=== PATIENT | female | born 1985 | race Caucasian/White ===

== ENCOUNTER 2017-12-19 13:43 | Inpatient (IN) | payer MEDICARE, MEDICAID ==
[~2017-12-19] VITALS: Ht 152.4 cm; Wt 65.8 kg
--- NOTE | ~2017-12-19 | PN ---
PATIENT:JUNIOR SORTO MEDICAL RECORD: [id number] LOCATION:[facility] ADMISSION DATE: 12/19/17 PROGRESS NOTE DATE OF SERVICE: 12/22/2017 ADDENDUM CHIEF COMPLAINT: Feeling okay. She is running no fever. She is having no chest pain. No shortness of breath. She is still n.p.o. Nothing aggravates. Nothing alleviates. She is asymptomatic. This is a progress note addendum. For the typed portion of the progress note, please see the chart. This would include the past medical and surgical history, current medications, allergies, social history as well as family history. REVIEW OF SYSTEMS: No nausea, no vomiting, no fever, no chills, no shortness of breath. PHYSICAL EXAMINATION: GENERAL: The patient does not appear acutely ill. She does not appear chronically ill. VITAL SIGNS: Reviewed. EARS: External ears appear normal. EYES: Extraocular movements are intact. NECK: Trachea is midline. CHEST: No intercostal retractions. PULMONARY: Nonlabored. No stridor. ABDOMEN: Nontender. EXTREMITIES: No peripheral cyanosis. INTEGUMENT: No rash, no ulcerations. PSYCHIATRIC: Normal affect. NEUROLOGIC: Nonfocal, no lethargy. The patient answers questions appropriately, moves all extremities well. PSYCHIATRIC: Normal affect. BACK: No thoracic kyphosis. IMPRESSION: Pneumomediastinum secondary to esophageal rupture. PLAN: Continue n.p.o. An upper GI dye study in the next few days per Dr. Meek. TRANSINT:[id number] Voice Confirmation ID: [id number] DOCUMENT ID: [id number] PROGRESS NOTE [id number] JUNIOR SORTO ROBERT MD at 1506 CC: [id number] DICTATION DATE: 12/22/17 164 BELT LOOP MAKER: 12/22/172019 DIS IN 12/25/17 [id number] [place] [address]
--- NOTE | ~2017-12-19 | HP ---
PATIENT: JUNIOR SORTO MEDICAL RECORD: [id number] ACCOUNT: [id number] LOCATION:[id number] : 81 ADMISSION DATE: 12/19/17 HISTORY AND PHYSICAL EXAMINATION ADDENDUM PREOPERATIVE DIAGNOSIS: "Can't breathe." HISTORY OF PRESENT ILLNESS: I was asked to see this patient due to pneumomediastinum. The patient was having shortness of breath. CT scan revealed a pneumomediastinum. This led to a CT of the chest, which also revealed a pneumomediastinum. The patient was drinking heavily last evening. This morning, she began vomiting violently. She states that she vomited greater than 50 times. Some of this vomitus became hematemesis. She developed shortness of breath. She contacted a loved one who told her to come to the hospital. The CT scan of the chest reveals air along the entire length of the esophagus and extends up into the right neck almost to the hyoid bone. Despite this, I could not feel any crepitus in the neck. There is no left pleural effusion. I contacted Dr. Alba, our cardiothoracic surgeon, who we are going to consult. I obtained some advice. The patient does have an elevated white count. She appears pretty comfortable otherwise, however. He and I discussed whether to image the patient with an upper GI or to image her with serial x-rays of the chest tomorrow with a chest x-ray and then another CT of the chest on Thursday. also discussed 3 therapeutic modalities; n.p.o., watchful waiting, and IV antibiotics versus immediate thoracotomy and repair versus a covered stent placement. We also discussed the possible benefits and risks of an EGD and this may make a diagnosis, but could blow a lot of esophageal contents out into the mediastinum causing mediastinitis. The patient generally looks very good and does not have any fluid in the left chest or any fluid within the mediastinum that I can see and for this reason, we are going to initially observe the patient and place her on parenteral nutrition as well as IV antibiotics and IV analgesia. She currently is not vomiting. This is a history and physical addendum. For the typed portion of the history and physical, please see the typed note. Nothing aggravates. Nothing alleviates. She describes her symptoms as moderate. The typed portion of the history and physical will include past medical and surgical history, current medications, allergies, social history as well as family history. REVIEW OF SYSTEMS: Nausea, which is now resolved. Currently without vomiting. No fever, no chills. Her dyspnea is improved. Review of systems is negative other than as is described above. PHYSICAL EXAMINATION: GENERAL: The patient does appear acutely ill. Does not appear chronically ill. VITAL SIGNS: Reviewed. EARS: External ears appear normal. EYES: Extraocular movements are intact. NECK: Trachea is midline. HISTORY AND PHYSICAL [id number] NOREEN,ROYLENA A CHEST: No intercostal retractions. PULMONARY: Nonlabored, no stridor. ABDOMEN: No peritonitis with movement. EXTREMITIES: No peripheral cyanosis. INTEGUMENT: No rash, no ulcerations. PSYCHIATRIC: Anxious affect. NEUROLOGIC: Nonfocal, no lethargy. The patient answers questions appropriately, moves all extremities well. BACK: No thoracic kyphosis. IMPRESSION: Pneumomediastinum due to esophageal rupture. PLAN: As described above. TRANSINT:[id number] Voice Confirmation ID: [id number] DOCUMENT ID: [id number] AUSTIN TAVERAS MD at 1158 CC: SALTY TRONCOSO MD and LAYNE ALBA [id number] DICTATION DATE: 12/19/172047 VIOLIN REPAIRER: 12/19/17 2257 DIS IN 12/25/17 [facility] [address] [place] [address]
[2017-12-19 14:35] LABS: BASOPHILS 0.1 % (0-2); EOSINOPHILS 0 % (0-7); HEMATOCRIT 46.5 % (36.0-48.0); HEMOGLOBIN 16.5 g/dL (12-16); IMMATURE GRANULOCYTES 0.2 % (0-5); MCHC 35.5 g/dL (31.0-37.0); MCV 90.3 fL (80.0-100.0); MEAN PLATELET VOLUME 10.9 fL (7.4-10.4); MONOCYTES 2.5 % (2-11); NEUTROPHILS 88.2 % (40-80); PLATELET COUNT 308 10x3/uL (130-400); RBC 5.15 10x6/uL (4.00-5.40); RDW 13.2 % (11.5-14.5); WBC 17.1 10x3/uL (4.8-10.8)
[2017-12-19 14:49] LABS: ALBUMIN 4.5 g/dL (3.4-5.0); ALKALINE PHOSPHATASE 107 U/L (46-116); ALT (SGPT) 52 U/L (10-68); BILIRUBIN - TOTAL 0.35 mg/dL (0.2-1.3); CALC OSMOLALITY 281 mosm/kg (275-300); CARBON DIOXIDE 21.8 mmol/L (21.0-32.0); CHLORIDE - SERUM 106 mmol/L (98-107); CREATININE - SERUM 0.8 mg/dL (0.6-1.3); GLUCOSE 134 mg/dL (74-106); POTASSIUM - SERUM 4.2 mmol/L (3.5-5.1); PROTEIN - SERUM 9.4 g/dL (6.4-8.2); SODIUM 141 mmol/L (136-145); UREA NITROGEN 10 mg/dL (7-18); eGFR NON AFRICAN AMERICAN 87 mL/min (90-120)
[2017-12-19 15:08] LABS: AMYLASE - SERUM 112 U/L (25-115); LIPASE 115 U/L (73-393)
[2017-12-19 15:15] LABS: APPEARANCE TURBID (CLEAR); BILIRUBIN NEGATIVE (NEGATIVE); COLOR YELLOW (YELLOW); GLUCOSE NEGATIVE (NEGATIVE); KETONE NEGATIVE (NEGATIVE); NITRITE NEGATIVE (NEGATIVE); PROTEIN 1+ mg/dL (NEGATIVE); UROBILINOGEN NORMAL (NORMAL)
[2017-12-19 15:17] LABS: BACTERIA MODERATE /hpf (NONE SEEN); EPITHELIAL CELLS 0-5 /hpf (0-5)
[2017-12-19 15:18] LABS: AMORPHOUS SEDIMENT >1+ /lpf (NONE SEEN); MUCUS <1+ /lpf (NONE SEEN); RED CELLS - URINE RARE /hpf (0-5)
[2017-12-19] MEDS ORDERED: ACETAMINOPHEN325 MG PO (23:05)
[2017-12-19] MEDS ORDERED: IBUPROFEN400 MG PO (23:05)
[2017-12-19 23:06] VITALS: BP 99/31; BMI 28.3
[2017-12-20 04:49] VITALS: BP 95/55
[2017-12-20 07:01] LABS: BASOPHILS 0.2 % (0-2); EOSINOPHILS 0.9 % (0-7); HEMATOCRIT 38.2 % (36.0-48.0); IMMATURE GRANULOCYTES 0.3 % (0-5); LYMPHOCYTES 23.5 % (15-50); MCH 31.1 pg (26.0-34.0); MCHC 33.8 g/dL (31.0-37.0); MEAN PLATELET VOLUME 10.8 fL (7.4-10.4); MONOCYTES 7.8 % (2-11); NEUTROPHILS 67.3 % (40-80); RBC 4.15 10x6/uL (4.00-5.40); RDW 13.4 % (11.5-14.5)
[2017-12-20 07:04] LABS: WBC 10.7 10x3/uL (4.8-10.8)
[2017-12-20 07:05] LABS: HEMOGLOBIN 12.9 g/dL (12-16); PLATELET COUNT 204 10x3/uL (130-400)
[2017-12-20 07:23] LABS: ALKALINE PHOSPHATASE 83 U/L (46-116); ALT (SGPT) 48 U/L (10-68); BILIRUBIN - TOTAL 0.84 mg/dL (0.2-1.3); CALC OSMOLALITY 280 mosm/kg (275-300); CARBON DIOXIDE 25.6 mmol/L (21.0-32.0); CHLORIDE - SERUM 108 mmol/L (98-107); CREATININE - SERUM 0.8 mg/dL (0.6-1.3); GLUCOSE 98 mg/dL (74-106); PHOSPHOROUS 2.8 mg/dL (2.5-4.9); POTASSIUM - SERUM 3.7 mmol/L (3.5-5.1); SODIUM 141 mmol/L (136-145); UREA NITROGEN 12 mg/dL (7-18); eGFR NON AFRICAN AMERICAN 87 mL/min (90-120)
[2017-12-20 07:24] LABS: ALBUMIN 3.2 g/dL (3.4-5.0); PROTEIN - SERUM 6.9 g/dL (6.4-8.2)
[2017-12-20 08:20] VITALS: BP 99/41
[2017-12-20 13:01] VITALS: BP 111/49
[2017-12-20 16:03] VITALS: BP 106/42
[2017-12-20 20:33] VITALS: BP 108/41
[2017-12-21 04:22] VITALS: BP 98/45
[2017-12-21 10:36] VITALS: BP 92/41
[2017-12-21 12:05] LABS: HEMATOCRIT 37.3 % (36.0-48.0); HEMOGLOBIN 12.1 g/dL (12-16); MCH 30.6 pg (26.0-34.0); MCHC 32.4 g/dL (31.0-37.0); MCV 94.2 fL (80.0-100.0); MEAN PLATELET VOLUME 10.7 fL (7.4-10.4); RBC 3.96 10x6/uL (4.00-5.40); RDW 12.9 % (11.5-14.5); WBC 5.4 10x3/uL (4.8-10.8)
[2017-12-21 12:14] LABS: CALC OSMOLALITY 273 mosm/kg (275-300); CALCIUM 7.9 mg/dL (8.5-10.1); CARBON DIOXIDE 27.3 mmol/L (21.0-32.0); CHLORIDE - SERUM 108 mmol/L (98-107); CREATININE - SERUM 0.8 mg/dL (0.6-1.3); GLUCOSE 85 mg/dL (74-106); SODIUM 138 mmol/L (136-145); UREA NITROGEN 10 mg/dL (7-18); eGFR NON AFRICAN AMERICAN 87 mL/min (90-120)
[2017-12-21 13:22] VITALS: Ht 152.4 cm; Wt 65.8 kg
[2017-12-21 13:35] VITALS: BP 131/68
[2017-12-21 18:39] VITALS: BP 110/39
[2017-12-21 20:58] VITALS: BP 118/70
[2017-12-22 00:40] VITALS: BP 110/59
[2017-12-22 04:38] VITALS: BP 114/42
[2017-12-22 06:12] LABS: BASOPHILS 0.2 % (0-2); EOSINOPHILS 1.6 % (0-7); HEMATOCRIT 32.9 % (36.0-48.0); LYMPHOCYTES 31.4 % (15-50); MCH 30.7 pg (26.0-34.0); MCHC 33.4 g/dL (31.0-37.0); MEAN PLATELET VOLUME 11.3 fL (7.4-10.4); MONOCYTES 9.2 % (2-11); NEUTROPHILS 57.6 % (40-80); PLATELET COUNT 161 10x3/uL (130-400); RBC 3.58 10x6/uL (4.00-5.40); RDW 12.5 % (11.5-14.5); WBC 6.3 10x3/uL (4.8-10.8)
[2017-12-22 06:22] LABS: MCV 91.9 fL (80.0-100.0)
[2017-12-22 06:31] LABS: ALBUMIN 2.8 g/dL (3.4-5.0); ALKALINE PHOSPHATASE 62 U/L (46-116); ALT (SGPT) 29 U/L (10-68); BILIRUBIN - TOTAL 0.49 mg/dL (0.2-1.3); CALC OSMOLALITY 275 mosm/kg (275-300); CALCIUM 7.5 mg/dL (8.5-10.1); CHLORIDE - SERUM 107 mmol/L (98-107); CREATININE - SERUM 0.6 mg/dL (0.6-1.3); GLUCOSE 92 mg/dL (74-106); POTASSIUM - SERUM 3.6 mmol/L (3.5-5.1); SODIUM 139 mmol/L (136-145); UREA NITROGEN 7 mg/dL (7-18); eGFR NON AFRICAN AMERICAN > 90 mL/min (90-120)
[2017-12-22 09:10] VITALS: BP 99/43
[2017-12-22 13:51] VITALS: BP 128/58
[2017-12-22 14:20] LABS: HEPATITIS C ANTIBODY >11.0 (0.0-0.9)
[2017-12-22 20:00] VITALS: BP 99/64
[2017-12-23] VITALS: BP 124/57
[2017-12-23 04:00] VITALS: BP 111/52
[2017-12-23 05:31] LABS: HEMOGLOBIN 10.6 g/dL (12-16); MCH 30.6 pg (26.0-34.0); MCHC 34.2 g/dL (31.0-37.0); MEAN PLATELET VOLUME 11.1 fL (7.4-10.4); RBC 3.46 10x6/uL (4.00-5.40); RDW 12.6 % (11.5-14.5); WBC 6.7 10x3/uL (4.8-10.8)
[2017-12-23 05:45] LABS: CALC OSMOLALITY 278 mosm/kg (275-300); CALCIUM 7.8 mg/dL (8.5-10.1); CARBON DIOXIDE 24.5 mmol/L (21.0-32.0); CHLORIDE - SERUM 109 mmol/L (98-107); CREATININE - SERUM 0.6 mg/dL (0.6-1.3); GLUCOSE 91 mg/dL (74-106); POTASSIUM - SERUM 3.5 mmol/L (3.5-5.1); SODIUM 141 mmol/L (136-145); UREA NITROGEN 8 mg/dL (7-18); eGFR NON AFRICAN AMERICAN > 90 mL/min (90-120)
[2017-12-23 05:48] LABS: MCV 89.6 fL (80.0-100.0)
[2017-12-23 08:04] VITALS: BP 105/51
[2017-12-23 12:18] VITALS: BP 105/53
[2017-12-23 19:54] VITALS: BP 106/48
[2017-12-24] VITALS (7 sets, daily range): BP systolic 104–135; BP diastolic 41–71
[2017-12-24 05:41] LABS: HEMATOCRIT 31.7 % (36.0-48.0); HEMOGLOBIN 10.7 g/dL (12-16); MCH 30.7 pg (26.0-34.0); MCHC 33.8 g/dL (31.0-37.0); MCV 90.8 fL (80.0-100.0); MEAN PLATELET VOLUME 11.2 fL (7.4-10.4); RBC 3.49 10x6/uL (4.00-5.40); WBC 5.5 10x3/uL (4.8-10.8)
[2017-12-24 05:53] LABS: CALC OSMOLALITY 281 mosm/kg (275-300); CALCIUM 7.7 mg/dL (8.5-10.1); CARBON DIOXIDE 24.7 mmol/L (21.0-32.0); CHLORIDE - SERUM 110 mmol/L (98-107); CREATININE - SERUM 0.6 mg/dL (0.6-1.3); GLUCOSE 97 mg/dL (74-106); POTASSIUM - SERUM 3.8 mmol/L (3.5-5.1); SODIUM 142 mmol/L (136-145); UREA NITROGEN 9 mg/dL (7-18); eGFR NON AFRICAN AMERICAN > 90 mL/min (90-120)
[2017-12-25 04:00] VITALS: BP 98/42
[2017-12-25 06:22] LABS: HEMATOCRIT 30.9 % (36.0-48.0); HEMOGLOBIN 10.6 g/dL (12-16); MCH 30.9 pg (26.0-34.0); MCHC 34.3 g/dL (31.0-37.0); MCV 90.1 fL (80.0-100.0); MEAN PLATELET VOLUME 11.5 fL (7.4-10.4); RBC 3.43 10x6/uL (4.00-5.40); WBC 6.6 10x3/uL (4.8-10.8)
[2017-12-25 06:33] LABS: CALC OSMOLALITY 276 mosm/kg (275-300); CALCIUM 7.9 mg/dL (8.5-10.1); CARBON DIOXIDE 23.1 mmol/L (21.0-32.0); CHLORIDE - SERUM 110 mmol/L (98-107); CREATININE - SERUM 0.7 mg/dL (0.6-1.3); GLUCOSE 94 mg/dL (74-106); POTASSIUM - SERUM 3.6 mmol/L (3.5-5.1); SODIUM 140 mmol/L (136-145); UREA NITROGEN 7 mg/dL (7-18); eGFR NON AFRICAN AMERICAN > 90 mL/min (90-120)
[2017-12-25 07:47] VITALS: BP 112/56
[2017-12-25 12:23] VITALS: BP 109/58
[2017-12-25] MEDS ORDERED: DIFLUCAN100 MG PO (13:12)
[2017-12-25] MEDS ORDERED: AUGMENTIN 875-11 TAB PO (13:12)
[2017-12-25] MEDS ORDERED: OMEPRAZOLE40 MG PO (13:13)
== END 2017-12-25 16:07 | disposition home or self-care (01) | DRG 199 ==
LOC: D.ER 13:43 → D.EDHOLD 20:45 → D.MS 20:45
PROVIDERS: Family Medicine; Internal Medicine Cardiovascular Disease; Nurse Practitioner Family; Student in an Organized Health Care Education/Training Program; Surgery
PROC: 02H633Z Insertion of Infusion Device into Right Atrium, Percutaneous Approach (ICD-10-PCS; principal; 2017-12-21)
PROC: B244ZZZ Ultrasonography of Right Heart (ICD-10-PCS; 2017-12-21)
DX: J98.2 Interstitial emphysema (principal); K22.3 Perforation of esophagus; F17.200 Nicotine dependence, unspecified, uncomplicated; R13.10 Dysphagia, unspecified